=== PATIENT | female | born 1930 | race Caucasian/White ===

== ENCOUNTER 2016-10-02 09:41 | Day surgery (SDC) | payer MEDICARE, BC ==
[~2016-10-02] VITALS: Ht 152.4 cm; Wt 82.6 kg
[2016-10-02] MEDS ORDERED: CELEXA 20MG20 MG/TAB PO (10:14)
[2016-10-02] MEDS ORDERED: ZYRTEC5 MG PO (10:18)
[2016-10-02 10:20] VITALS: BP 170/88; PULSE 92; TEMP 98
[2016-10-02 13:27] VITALS: BP 171/66; PULSE 74; TEMP 97.2
[2016-10-02 13:42] VITALS: BP 178/77; PULSE 65
[2016-10-02] MEDS ORDERED: NORCO 325 MG-51 TAB PO (13:51)
[2016-10-02 13:57] VITALS: BP 172/81; PULSE 84
[2016-10-02 14:12] VITALS: BP 175/78; PULSE 69
== END 2016-10-02 14:30 | disposition home or self-care (01) ==
LOC: SDCO 09:41 → EDBD 09:41 → SDCO 12:00
DX: C44.622 Squamous cell carcinoma of skin of right upper limb, including shoulder (principal); Z85.3 Personal history of malignant neoplasm of breast; Z96.652 Presence of left artificial knee joint; Z90.12 Acquired absence of left breast and nipple
CPT/HCPCS: A4565; J0690; J2250; J2405; J2704; J3010; J7030

== ENCOUNTER → 2016-12-14 | Outpatient (CLI) | payer MEDICARE, BC ==
[~2016-12-14] MED LIST: CELEXA 20MG20 MG/TAB PO; NORCO 325 MG-51 TAB PO; ZYRTEC5 MG PO
== END ==
LOC: MC.RAD 13:36
DX: Z12.31 Encounter for screening mammogram for malignant neoplasm of breast (principal)

== ENCOUNTER 2017-01-31 13:33 | Inpatient (IN) | payer MEDICARE, BC ==
[~2017-01-31] VITALS: Ht 152.4 cm; Wt 80.6 kg
[2017-03-19] MEDS ORDERED: ELIQUIS 5MG PO (08:35)
[2017-03-19] MEDS ORDERED: FOLIC ACID0.4 MG PO (08:35)
[2017-03-19] MEDS ORDERED: FERROUSAL325 MG PO (08:35)
[2017-03-19] MEDS ORDERED: VITAMIN C500 MG PO (08:36)
[2017-03-19] MEDS ORDERED: CARDIZEM 30MG T30 MG PO (08:36)
[2017-03-19] MEDS ORDERED: TOPROL XL 25MG25 MG PO (08:36)
[2017-04-30] VITALS (10 sets, daily range): BP systolic 120–146; BP diastolic 45–77; PULSE 49–68; TEMP 97–98.8
[2017-05-01] VITALS: BP 124/54; PULSE 69; TEMP 99.3
[2017-05-01 04:00] VITALS: BP 122/61; PULSE 63; TEMP 98.8
[2017-05-01 06:05] LABS: HEMATOCRIT 37.2 % (37.0-47.0)
[2017-05-01 06:13] LABS: HEMOGLOBIN 11.7 g/dl (12.5-16.0)
[2017-05-01 07:51] VITALS: BP 142/62; PULSE 71; TEMP 98.6
[2017-05-01 12:15] VITALS: BP 134/54; PULSE 80; TEMP 97.5
[2017-05-01 16:06] VITALS: BP 148/63; PULSE 61; TEMP 98.6
[2017-05-01 19:54] VITALS: BP 150/66; PULSE 73; TEMP 98.4
[2017-05-02 00:38] VITALS: BP 148/79; PULSE 98; TEMP 97.9
[2017-05-02 04:00] VITALS: BP 141/65; PULSE 70; TEMP 97.7
[2017-05-02 07:38] VITALS: BP 142/91; PULSE 76; TEMP 98.1
[2017-05-02 11:43] VITALS: BP 152/59; PULSE 70; TEMP 97.9
[2017-05-02] MEDS ORDERED: ELIQUIS 2.5 PO (14:27)
[2017-05-02] MEDS ORDERED: ULTRAM 50MG TAB50 MG PO (14:27)
== END 2017-05-02 16:00 | disposition home or self-care (01) | DRG 470 ==
LOC: JCC 02-21 10:45
PROVIDERS: Orthopaedic Surgery
PROC: 0SRC0J9 Replacement of Right Knee Joint with Synthetic Substitute, Cemented, Open Approach (ICD-10-PCS; principal; 2017-04-30 14:10)
DX: M17.11 Unilateral primary osteoarthritis, right knee (principal); J45.909 Unspecified asthma, uncomplicated
CPT/HCPCS: A4314; A9284; C1713; C1776; J0690; J2250; J2405; J2704; J3010; J7120

== ENCOUNTER → 2017-02-13 | Outpatient (CLI) | payer MEDICARE, BC ==
[2017-02-13 14:47] LABS: HIV 1/2 Antibodies Non-Reactive; HIV-1p24 Antigen Non-Reactive
== END ==
LOC: COL.LAB 10:22
PROVIDERS: Family Medicine
DX: Z01.812 Encounter for preprocedural laboratory examination (principal)

== ENCOUNTER 2017-03-19 07:15 | Day surgery (SDC) | payer MEDICARE, BC ==
[~2017-03-19] VITALS: Ht 152.5 cm; Wt 80.9 kg
[2017-03-19] MEDS ORDERED: ELIQUIS 5MG PO (08:35)
[2017-03-19] MEDS ORDERED: FERROUSAL325 MG PO (08:35)
[2017-03-19] MEDS ORDERED: FOLIC ACID0.4 MG PO (08:35)
[2017-03-19] MEDS ORDERED: TOPROL XL 25MG25 MG PO (08:36)
[2017-03-19] MEDS ORDERED: VITAMIN C500 MG PO (08:36)
[2017-03-19] MEDS ORDERED: CARDIZEM 30MG T30 MG PO (08:36)
[2017-03-19 08:46] VITALS: BP 183/79; PULSE 71; TEMP 97.9
== END 2017-03-19 09:01 | disposition home or self-care (01) ==
LOC: COL.CAR 07:15
DX: I48.91 Unspecified atrial fibrillation (principal); Z53.8 Procedure and treatment not carried out for other reasons; R06.02 Shortness of breath; Z68.34 Body mass index [BMI] 34.0-34.9, adult; E78.5 Hyperlipidemia, unspecified; M17.0 Bilateral primary osteoarthritis of knee; H91.93 Unspecified hearing loss, bilateral; F32.9 Major depressive disorder, single episode, unspecified; Z79.01 Long term (current) use of anticoagulants; Z85.828 Personal history of other malignant neoplasm of skin; Z85.3 Personal history of malignant neoplasm of breast; J45.909 Unspecified asthma, uncomplicated
CPT/HCPCS: J2704; J3010

== ENCOUNTER → 2018-03-22 | Outpatient (CLI) | payer MEDICARE, BC ==
[~2018-03-22] MED LIST changes: +CARDIZEM 30MG T30 MG PO; +ELIQUIS 2.5 PO; +ELIQUIS 5MG PO; +FERROUSAL325 MG PO; +FOLIC ACID0.4 MG PO; +TOPROL XL 25MG25 MG PO; +ULTRAM 50MG TAB50 MG PO; +VITAMIN C500 MG PO
== END ==
LOC: MC.RAD 13:54
DX: N63.20 Unspecified lump in the left breast, unspecified quadrant (principal)

== ENCOUNTER → 2019-06-04 | Outpatient (CLI) | payer MEDICARE, BC ==
[2019-06-04 12:42] LABS: HEMATOCRIT 44.1 % (37.0-47.0); HEMOGLOBIN 13.6 g/dl (12.5-16.0); MEAN CELL VOLUME 95 fl (80.0-100.0); MEAN CORPUSCULAR HEMOGLOBIN 29 pg (27.0-31.0); MEAN CORPUSCULAR HGB CONC 31 g/dl (33.0-37.0); MEAN PLATELET VOLUME 9.5 fl (7.4-10.4); PLATELET COUNT 260 K/mm3 (130-400); RED BLOOD COUNT 4.63 M/mm3 (4.10-5.30); REDCELL DISTRIBUTION WIDTH-CV 12.7 % (11.5-14.5)
[2019-06-04 14:19] LABS: ERYTHROCYTE SEDIMENTATION RATE 13 mm/hr (0-30)
== END ==
LOC: COL.LAB 11:55
PROVIDERS: Orthopaedic Surgery
DX: M25.561 Pain in right knee (principal); Z96.651 Presence of right artificial knee joint